=== PATIENT | female | born 1985 | race Caucasian/White ===

== ENCOUNTER → 2016-10-23 | Outpatient (REF) | payer BC | LOC: M LAB REF 08:58 | PROVIDERS: ATTEND Physician Assistant | DX: N39.0 Urinary tract infection, site not specified (principal) ==

== ENCOUNTER → 2016-10-25 | Outpatient (CLI) | payer BC ==
[2016-10-25 11:02] LABS: BASO % 0.2 % (0.0-1.0); EOS # 0.1 K/mm3 (0.0-0.50); EOS % 0.8 % (0.0-3.0); LARGE UNSTAINED CELL # 0.1 K/mm3 (0.0-0.4); LARGE UNSTAINED CELL % 1.5 % (0.0-4.0); LYMPH # 1.9 K/mm3 (1.5-4.5); LYMPH % 26.7 % (24.0-44.0); MEAN CORPUSCULAR HEMOGLOBIN 30.8 pg (27.0-33.0); MEAN CORPUSCULAR VOLUME 87.9 fl (80.0-96.0); MONO # 0.3 K/mm3 (0.0-0.8); MONO % 4.4 % (0.0-5.0); NEUTROPHILS # 4.6 K/mm3 (1.8-7.7); NEUTROPHILS % 66.3 % (36.0-66.0); PLATELET COUNT, AUTOMATED 136 k/mm3 (150-450); RED CELL DISTRIBUTION WIDTH 12.8 % (11.5-14.5)
[2016-10-25 11:08] LABS: ALBUMIN 4.1 GM/DL (3.2-5.2); ALBUMIN/GLOBULIN RATIO 1.41 (1.00-1.93); ALKALINE PHOSPHATASE 68 U/L (45-117); ALT/SGPT 47 U/L (12-78); ANION GAP 7 MEQ/L (8-16); AST/SGOT 32 U/L (15-37); BILIRUBIN,TOTAL 0.4 MG/DL (0.2-1.0); BLOOD UREA NITROGEN 14 MG/DL (7-18); CALCIUM LEVEL 8.8 MG/DL (8.5-10.1); CARBON DIOXIDE LEVEL 27 MEQ/L (21-32); CHLORIDE LEVEL 107 MEQ/L (98-107); CREATININE FOR GFR 0.83 MG/DL (0.55-1.02); GLOMERULAR FILTRATION RATE > 60.0 (>60); GLUCOSE, FASTING 95 MG/DL (70-105); POTASSIUM SERUM 4.4 MEQ/L (3.5-5.1); SODIUM LEVEL 141 MEQ/L (136-145)
--- NOTE | 2016-10-25 11:47 | REP ---
CT ABDOMEN AND PELVIS WITHOUT AND WITH CONTRAST: 10/25/2016. Clinical history: Urinary frequency, flank pain, fever. Possible pyelonephritis. Technique: Noncontrast images of the abdomen pelvis followed by a bolus of 100 mL of Isovue 370 and scanning through the abdomen and pelvis. Coronal and sagittal reconstructions provided. Findings: CT abdomen: The lung bases are clear and without effusion, infiltrate, nodule or mass. The heart is not enlarged. There is no pericardial thickening or effusion. No hiatal hernia. Stomach filled with retained food. There is no hepatomegaly, focal hepatic mass or intrahepatic biliary dilatation. No ascites. Gallbladder shows no calcified stone. I suspect some sludge may be present. There is again noted to be some splenomegaly with the spleen measuring 15.9 x 14.5 x 4.7 cm. This is similar to the previous study and gives a splenic index of 1083. Normal range for splenic index is less than 480. Pancreas unremarkable. Adrenal glands are normal. Kidneys show no definite stone, hydronephrosis or perinephric fluid. On contrast images, there is homogeneous enhancement without a striated nephrogram or other signs of pyelonephritis. No perinephric edema. No hydronephrosis or hydroureter. Ureters show normal course to the bladder. No ureteral dilatation or stone. Small bowel loops are grossly intact. Colon shows scattered stool and gas without colitis or diverticulitis. Lung window review of all CT slices in the abdomen and pelvis show no perforation or free air. The bone windows show that the L5-S1 disc level is narrowed. There are posterior osteophytes at the L4-5. Sacralization of the transverse process of L5 on the left is noted. The L4-5 disc space is slightly narrowed. Those levels above show intact disc height. No compression deformity in any of the lumbar or visible thoracic levels. Visualized ribs intact. CT pelvis: Bony hips were symmetric with some rim osteophytes femoral heads and mild degenerative changes with joint space narrowing but no fracture, AVN or destructive lesion. Pubic rami, symphysis pubis, iliac wings, SI joints and lumbosacral junction show no acute finding although the narrowing of the L5-S1 disc level is significant and sacralization transverse process on the left noted at L5. No ventral or inguinal hernia nor pathologic inguinal adenopathy. Uterus tilted toward the right side and is anteverted but no mass. There is an IUD in place. A few follicles in the ovaries but no mass. No pelvic free fluid or adenopathy. No ventral or inguinal hernia or pathologic inguinal adenopathy. Impression: 1. There is no compelling CT evidence for pyelonephritis, hydronephrosis, renal or ureteral stone, bladder stone, mass or debris. 2. No definite gallbladder calculi although some sludge may be suspected. 3. Stable splenomegaly as described above. No hepatomegaly, ascites, abdominal or pelvic adenopathy, ascites or mass. 4. Colon, small bowel loops and stomach unremarkable. Signed by Enrique Mirza MD 10/25/2016 04:43 P
== END ==
LOC: M LAB 10:22
PROVIDERS: ATTEND Physician Assistant
DX: R50.9 Fever, unspecified (principal)

== ENCOUNTER 2017-01-26 13:25 | Emergency (ER) | payer OTHER, BC ==
[~2017-01-26] VITALS: Ht 177.8 cm; Wt 104.3 kg
[2017-01-26] MEDS ORDERED: GLYC1TAB18 (13:36)
[2017-01-26] MEDS ORDERED: MONT10TA2 (13:36)
[2017-01-26] MEDS ORDERED: ADV250INH INH (13:36)
[2017-01-26] MEDS ORDERED: LORA1TAB12 (13:36)
[2017-01-26] MEDS ORDERED: IBUPROFEN 800 MG TAB PO ONE (14:00)
[2017-01-26] MEDS ORDERED: NAPR500T PO (14:29)
[2017-01-26] MEDS ORDERED: CYCL10TA PO (14:29)
[2017-01-26 14:38] VITALS: BP 135/81
--- NOTE | 2017-01-26 15:30 | REP ---
THORACIC SPINE, THREE VIEWS: HISTORY: Trauma. There is no acute fracture or subluxation. The intervertebral discs are normal in height. Osteophytes are present in the lower thoracic spine. IMPRESSION: There is no acute fracture or subluxation. Signed by Keron Seay MD 01/26/2017 03:30 P
== END 2017-01-26 14:47 | disposition home or self-care (01) ==
LOC: M ED 14:36
DX: M54.9 Dorsalgia, unspecified (principal); W05.0XXA Fall from non-moving wheelchair, initial encounter; Y92.89 Other specified places as the place of occurrence of the external cause; Y93.F2 Activity, caregiving, lifting; Y99.0 Civilian activity done for income or pay; J45.909 Unspecified asthma, uncomplicated; F99 Mental disorder, not otherwise specified; Z79.899 Other long term (current) drug therapy; Z79.51 Long term (current) use of inhaled steroids; Z88.2 Allergy status to sulfonamides; Z88.5 Allergy status to narcotic agent

== ENCOUNTER → 2017-02-21 | Outpatient (CLI) | payer OTHER, BC ==
[~2017-02-21] MED LIST: ADV250INH INH; CYCL10TA PO; GLYC1TAB18; LORA1TAB12; MONT10TA2; NAPR500T PO
[2017-02-24 00:19] LABS: Lyme Disease IgG/IgM Antibodie <0.91 ISR (0.00-0.90); Lyme Disease IgM Ab Quantitati <0.80 index (0.00-0.79)
== END ==
LOC: M LAB 15:30
PROVIDERS: ATTEND Physician Assistant
DX: M25.561 Pain in right knee (principal)

== ENCOUNTER 2017-06-06 12:14 | Emergency (ER) | payer BC ==
[~2017-06-06] VITALS: Ht 175.3 cm; Wt 104.5 kg
[2017-06-06] MEDS ORDERED: LEVO500T3 (12:31)
[2017-06-06] MEDS ORDERED: ZYRT10TA2 PO (12:31)
[2017-06-06] MEDS ORDERED: IBUP-1114 PO (12:31)
[2017-06-06] MEDS ORDERED: methylPREDNISolone INJ 125 MG/2 ML VIAL (J2930) IV ONE (13:00)
[2017-06-06] MEDS ORDERED: ALBUTEROL SULFATE 2.5 MG/0.5 ML INH NEB SOLN NEB ONE (13:00)
[2017-06-06] MEDS ORDERED: IPRATROPIUM 0.5MG/ALBUTEROL 2.5MG INH SOL UD 3ML (DUONEB)(J7620) NEB ONE (13:00)
[2017-06-06 13:34] LABS: CONTROL LINE HCG INT CTR LINE PRESENT
[2017-06-06 13:52] LABS: ANION GAP 10 MEQ/L (8-16); BLOOD UREA NITROGEN 8 MG/DL (7-18); CALCIUM LEVEL 9.7 MG/DL (8.5-10.1); CARBON DIOXIDE LEVEL 22 MEQ/L (21-32); CHLORIDE LEVEL 108 MEQ/L (98-107); CREATININE FOR GFR 0.79 MG/DL (0.55-1.02); GLOMERULAR FILTRATION RATE > 60.0 (>60); GLUCOSE, FASTING 93 MG/DL (70-105); POTASSIUM SERUM 3.6 MEQ/L (3.5-5.1); SODIUM LEVEL 140 MEQ/L (136-145)
[2017-06-06 13:53] LABS: MEAN CORPUSCULAR HEMOGLOBIN 31.7 pg (27.0-33.0); MEAN CORPUSCULAR VOLUME 84.5 fl (80.0-96.0); WHITE BLOOD COUNT 6.4 K/mm3 (4.0-10.0)
[2017-06-06 13:54] LABS: BASO % 0.3 % (0.0-1.0); EOS % 1.3 % (0.0-3.0); LARGE UNSTAINED CELL % 1.5 % (0.0-4.0); LYMPH # 2.2 K/mm3 (1.5-4.5); LYMPH % 34.5 % (24.0-44.0); MEAN CORPUSCULAR HGB CONC 37.5 g/dl (32.0-36.5); MONO # 0.3 K/mm3 (0.0-0.8); MONO % 4.5 % (0.0-5.0); NEUTROPHILS # 3.7 K/mm3 (1.8-7.7); NEUTROPHILS % 57.8 % (36.0-66.0); PLATELET COUNT, AUTOMATED 147 k/mm3 (150-450); RED CELL DISTRIBUTION WIDTH 12.5 % (11.5-14.5)
[2017-06-06 13:55] LABS: ADD MANUAL DIFFER NO; DIFF SLIDE NUMBER 245; EOS # 0.1 K/mm3 (0.0-0.50); LARGE UNSTAINED CELL # 0.1 K/mm3 (0.0-0.4)
--- NOTE | 2017-06-06 14:00 | REP ---
Clinical: Cough and dyspnea . Comparison: 06/10/2016 . Technique: PA and lateral. Findings: The mediastinum and cardiac silhouette are normal. The lung tillman are clear and without acute consolidation, effusion, or pneumothorax. The skeletal structures are intact and normal. Impression: 1. No acute cardiopulmonary process. Signed by Brian Ronquillo MD 06/06/2017 01:51 P
[2017-06-06] MEDS ORDERED: PRED20TA PO (15:46)
[2017-06-06] MEDS ORDERED: HYDR5LIQ2 PO (15:46)
[2017-06-06 15:55] VITALS: BP 130/80
== END 2017-06-06 15:57 | disposition home or self-care (01) ==
LOC: M ED 12:14
DX: J45.901 Unspecified asthma with (acute) exacerbation (principal); J06.9 Acute upper respiratory infection, unspecified; Z98.890 Other specified postprocedural states; Z79.51 Long term (current) use of inhaled steroids; Z79.899 Other long term (current) drug therapy; Z88.5 Allergy status to narcotic agent; Z88.1 Allergy status to other antibiotic agents; Z88.2 Allergy status to sulfonamides
CPT/HCPCS: 36415; 71020; 80048; 83605; 84703; 85025; 85379; 87040; 94640; 94760; 96374; 99283; J2930

== ENCOUNTER 2017-12-06 09:38 | Emergency (ER) | payer OTHER, BC ==
[2017-12-06] MEDS: methylPREDNISolone INJ 125 MG/2 ML VIAL (J2930) IM (10:13)
[2017-12-06] MEDS: KETOROLAC 60 MG/2 ML VIAL (J1885) IM (10:14)
== END 2017-12-06 10:49 | disposition home or self-care (01) ==
LOC: M ED 09:38
DX: M62.830 Muscle spasm of back (principal); Z79.899 Other long term (current) drug therapy; Z88.1 Allergy status to other antibiotic agents; Z88.2 Allergy status to sulfonamides; Z88.5 Allergy status to narcotic agent; Z87.891 Personal history of nicotine dependence
CPT/HCPCS: J1885